=== PATIENT | male | born 1945 | race Caucasian/White ===

== ENCOUNTER 2023-03-05 14:18 | Emergency (ER) | payer MEDICARE ==
[2023-03-05] MEDS ORDERED: Ketorolac 30 MG/ML SDV IM ONE (14:44)
[2023-03-05] MEDS ORDERED: Cyclobenzaprine 10 MG Tab PO ONE (14:44)
[2023-03-05] MEDS ORDERED: Acetaminophen/oxyCODONE 325-5 MG Tab PO STA (14:49)
== END 2023-03-05 16:05 | disposition home or self-care (01) ==
LOC: FB.ED 14:18
DX: G57.01 Lesion of sciatic nerve, right lower limb (principal); Z79.82 Long term (current) use of aspirin; Z79.899 Other long term (current) drug therapy; Z88.1 Allergy status to other antibiotic agents
CPT/HCPCS: 96372; 99283; A9270; J1885

== ENCOUNTER 2023-07-02 12:09 | Emergency (ER) | payer MEDICARE ==
[2023-07-02 12:22] LABS: HEMATOCRIT 43.9 % (38.3-50.1); HEMOGLOBIN 14.2 g/dL (12.9-17.7); MEAN CORPUSCULAR HEMOGLOBIN 29.5 pg (27.0-33.3); MEAN CORPUSCULAR HGB CONC 32.3 g/dL (28.7-35.3); MEAN CORPUSCULAR VOLUME 91.2 fL (80.8-98.7); MEAN PLATELET VOLUME 8.7 fL (6.7-11.0); PLATELET COUNT,PLT 241 x10(3)uL (117-477); RED BLOOD CELL COUNT 4.81 x10(6)uL (3.90-5.90); WHITE BLOOD CELL COUNT,WBC 5.2 x10-3/uL (3.2-10.1)
[2023-07-02] MEDS: Iopamidol 755 Mg/ML 100 ML Bottle IV SCH (12:26)
[2023-07-02] MEDS: Aspirin 81 MG Tab.Chew PO ONE (12:27)
[2023-07-02 12:29] LABS: A/G RATIO 0.8; ALANINE AMINOTRANSFERASE,ALT 26 U/L (12-36); ALBUMIN 3.4 g/dL (3.2-4.6); ALKALINE PHOSPHATASE 78 IU/L (56-112); ASPARTATE AMNIOTRANSFERASE,AST 21 IU/L (5-25); BILIRUBIN TOTAL 0.5 mg/dL (0.1-1.3); BLOOD UREA NITROGEN,BUN 34 mg/dL (7-18); CALCIUM 9.3 mg/dL (8.6-10.2); CARBON DIOXIDE,CO2 33 mmol/L (21-32); CHLORIDE,CL 99 mmol/L (100-110); ESTIMATED GFR 78 mL/min (>60); GLUCOSE RANDOM 137 mg/dL (80-116); PROTEIN TOTAL,TP 7.9 g/dL (6.0-8.0); SODIUM,NA 139 mmol/L (135-145)
[2023-07-02 12:32] LABS: D-DIMER QUANTITATIVE 0.66 mg/LFEU (0.0-0.59)
[2023-07-02 12:36] LABS: LACTIC ACID 0.7 mmol/L (0.4-2.0)
[2023-07-02 12:40] LABS: TROPONIN I 5.8 pg/mL (4.0-60.3)
[2023-07-02 12:53] LABS: LYMPHOCYTES PERCENT MAN 21 % (13-37); MONOCYTES PERCENT MAN 18 % (4-12); SEG NEUTROPHILS PERCENT MAN 61 % (46-82)
[2023-07-02 12:54] LABS: INFLUENZA A NAA NEGATIVE (NEGATIVE); INFLUENZA B NAA NEGATIVE (NEGATIVE); RESPIRATORY SYNCYTIAL VIR NAA NEGATIVE (NEGATIVE)
[2023-07-02 12:56] LABS: CORONAVIRUS COVID-19 NAA POSITIVE (NEGATIVE)
[2023-07-02] MEDS: Albuterol/Ipratropium 3.0-0.5 MG/3 ML Neb Soln NEB ONE (12:59)
[2023-07-02] MEDS: methylPREDNISolone Sodium Succinate 125 MG/2 ML SDV IVPUSH ONE (12:59)
[2023-07-02 13:02] LABS: PROTHROMBIN TIME 10.4 sec (9.0-11.1)
[2023-07-02] MEDS ORDERED: Albuterol 0.083% 2.5 MG/3 ML Neb Soln NEB PRN (13:03)
[2023-07-02] MEDS: Apixaban 5 MG Tab PO SCH (13:28)
[2023-07-02] MEDS: REMDESIVIR 200 MG in Sodium Chloride 0.9% 250 ML IV ONE (13:47)
[2023-07-02] MEDS: Sodium Chloride 0.9% 1,000 ML IV SCH (13:48)
[2023-07-02] MEDS: Amoxicillin/Clavulanate K 875-125 MG Tab PO ONE (14:06)
[2023-07-02] MEDS ORDERED: Albuterol/Ipratropium 3.0-0.5 MG/3 ML Neb Soln NEB SCH (20:00)
[2023-07-02] MEDS ORDERED: methylPREDNISolone Sodium Succinate 125 MG/2 ML SDV IVPUSH SCH (21:00)
== END 2023-07-02 14:30 ==
LOC: EDSTATUS 12:09 → FB.ED 12:09
DX: U07.1 COVID-19 (principal); J44.1 Chronic obstructive pulmonary disease with (acute) exacerbation; R09.02 Hypoxemia; I26.99 Other pulmonary embolism without acute cor pulmonale; R91.1 Solitary pulmonary nodule; E11.9 Type 2 diabetes mellitus without complications; E78.5 Hyperlipidemia, unspecified; F41.1 Generalized anxiety disorder; E78.00 Pure hypercholesterolemia, unspecified; I10 Essential (primary) hypertension; F17.210 Nicotine dependence, cigarettes, uncomplicated; Z88.1 Allergy status to other antibiotic agents; Z79.899 Other long term (current) drug therapy; Z79.82 Long term (current) use of aspirin; Z86.19 Personal history of other infectious and parasitic diseases; Z79.84 Long term (current) use of oral hypoglycemic drugs
CPT/HCPCS: 0241U; 36415; 71275; 80053; 82248; 82947; 83605; 83880; 84484; 85025; 85379; 85610; 85730; 86140; 87040; 93005; 93010; 94640; 96365; 96375; 99285; 99285-25; A9270-GY; J0248; J2930; J7030; J7050; J7620; Q9967